=== PATIENT | male | born 1960 | race Caucasian/White ===

== ENCOUNTER 2018-01-13 13:48 | Emergency (ER) | payer OTHER, MEDICAID ==
[2018-01-13] MEDS ORDERED: Amoxicillin/Clavulanate K 875-125 MG Tab PO ONE (14:45)
[2018-01-13] MEDS ORDERED: Bacitracin Oint 1 GM U/D Packet TOP ONE (14:46)
[2018-01-13] MEDS ORDERED: Diphtheria,Pertussis(Acell),Tetanus Vaccine 0.5 ML SDV IM ONE (14:47)
--- NOTE | 2018-01-13 14:52 | EDM.PDOC ---
ED HPI GENERAL MEDICAL PROBLEM - General Chief Complaint: Bite:Animal, Insect Stated Complaint: BIT BY DOG- [facility] Time Seen by Provider: 01/13/18 14:35 Source of Information: Reports: Patient, RN History Limitations: Reports: No Limitations - History of Present Illness INITIAL COMMENTS - FREE TEXT/NARRATIVE: 57 yo male here after being bitten by a dog today. Poured peroxide on wound right afterwards. He thinks he is UTD on tetanus, but cannot recall the date. The dog is vaccinated. L hand injury resulted. No pain with moving any of his fingers, no numbness in fingers. 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: Other (see below) (wound care) Left Hand Pain Score (Numeric/FACES): 3 - Related Data Allergies Allergy/AdvReac Type Severity Reaction Status Date / Time naproxen Allergy Stomach Verified 01/13/18 14:11 Upset Home Meds: Home Meds Amoxicillin/Potassium Clav [Augmentin 875-125 Tablet] 1 each PO BID #5 tablet [Rx] Ibuprofen 400 mg PO BID PRN 01/13/18 [History] Lisinopril 1 tab PO DAILY 01/13/18 [History] Past Medical History HEENT History: Reports: Impaired Vision Cardiovascular History: Reports: Hypertension Musculoskeletal History: Reports: Fracture Other Musculoskeletal History: leg - Infectious Disease History Infectious Disease History: Reports: Chicken Pox, Measles - Past Surgical History GI Surgical History: Reports: Appendectomy Musculoskeletal Surgical History: Reports: Other (See Below) Other Musculoskeletal Surgeries/Procedures:: tendon repair l elbow upper bicep tendon repair Social & Family History - Tobacco Use Smoking Status *Q: Never Smoker Second Hand Smoke Exposure: No - Caffeine Use Caffeine Use: Reports: Coffee, Tea - Alcohol Use Days Per Week of Alcohol Use: 0 - Recreational Drug Use Recreational Drug Use: No ED ROS GENERAL - Review of Systems Review Of Systems: See Below Constitutional: Reports: No Symptoms HEENT: Reports: No Symptoms Respiratory: Reports: No Symptoms Cardiovascular: Reports: No Symptoms Musculoskeletal: Reports: Hand Pain (left) Skin: Reports: Wound (L hand) Neurological: Reports: No Symptoms ED EXAM, ANIMAL BITE - Physical Exam Exam: See Below Exam Limited By: No Limitations General Appearance: Alert, WD/WN, No Apparent Distress Ears: Hearing Grossly Normal Nose: Normal Inspection Throat/Mouth: Normal Voice, No Airway Compromise Head: Atraumatic, Normocephalic Neck: Normal Inspection, Supple Respiratory/Chest: No Respiratory Distress Extremities: Other (bite wounds L hand) Neurological: Alert, Oriented, CN II-XII Intact, Normal Cognition, No Motor/ Sensory Deficits Psychiatric: Normal Affect, Normal Mood Skin Exam: Normal Color, Other (bite wounds left hand) Lymphadenopathy: Bilateral: No Adenopathy Lymphatic: No Adenopathy Course - Vital Signs Last Recorded V/S: Last Vital Signs Temp 36.3 C 01/13/18 14:23 Pulse 86 01/13/18 14:23 Resp 16 01/13/18 14:23 BP 135/96 H 01/13/18 14:23 Pulse Ox 97 01/13/18 14:23 - Orders/Labs/Meds Orders: Active Orders 24 hr Category Date Time Status Vaccines to be Administered [RC] PER UNIT ROUTINE Care 01/13/18 14:47 Active Meds: Medications Discontinued Medications Generic Name Dose Route Start Last Admin Trade Name Freq PRN Reason Stop Dose Admin Amoxicillin/Clavulanate Potassium 1 tab 01/13/18 14:45 01/13/18 14:52 Augmentin 875 Mg/125 Mg PO 01/13/18 14:46 1 tab ONETIME ONE Administration Bacitracin 1 dose 01/13/18 14:46 01/13/18 14:53 Bacitracin Oint 1 Gm TOP 01/13/18 14:47 1 dose ONETIME ONE Administration Diphtheria/Tetanus/Acell Pertussis 0.5 ml 01/13/18 14:47 01/13/18 14:54 Adacel IM 01/13/18 14:48 0.5 ml .ONCE ONE Administration Departure - Departure Time of Disposition: 15:14 Disposition: Home, Self-Care 01 Condition: Good Clinical Impression: Dog bite of left hand Qualifiers: Encounter type: initial encounter Qualified Code(s): S61.452A - Open bite of left hand, initial encounter; W54.0XXA - Bitten by dog, initial encounter - Discharge Information Prescriptions: Amoxicillin/Potassium Clav [Augmentin 875-125 Tablet] 1 each PO BID #5 tablet Referrals: PCP,None [Primary Care Provider] - Forms: ED Department Discharge Additional Instructions: Clean wound with soap and water twice daily. Dry. Apply antibiotic ointment and a new dressing. Recheck in the clinic Thursday afternoon or Thursday morning. Return here as needed. Acetaminophen as needed for pain relief. - My Orders Last 24 Hours: My Active Orders 01/13/18 14:47 Vaccines to be Administered [RC] PER UNIT ROUTINE - Assessment/Plan Last 24 Hours: My Active Orders 01/13/18 14:47 Vaccines to be Administered [RC] PER UNIT ROUTINE
== END 2018-01-13 15:28 | disposition home or self-care (01) ==
LOC: JP.ED 13:48
DX: S61.452A Open bite of left hand, initial encounter (principal); I10 Essential (primary) hypertension; Z88.6 Allergy status to analgesic agent; Z23 Encounter for immunization; W54.0XXA Bitten by dog, initial encounter
CPT/HCPCS: 90471; 90715; 99283; A9270

== ENCOUNTER 2025-03-26 17:26 | Emergency (ER) | payer MEDICARE ==
[2025-03-26] MEDS: Diphtheria,Pertussis(Acell),Tetanus Vaccine 0.5 ML Syringe IM ONE (19:17)
[2025-03-26] MEDS: Bacitracin Oint 1 GM U/D Packet TOP ONE (19:19)
[2025-03-26] MEDS: Amoxicillin/Clavulanate K 875-125 MG Tab PO ONE (20:11)
== END 2025-03-26 20:15 | disposition home or self-care (01) ==
LOC: JP.ED 17:26
DX: S61.215A Laceration without foreign body of left ring finger without damage to nail, initial encounter (principal); I10 Essential (primary) hypertension; Z88.8 Allergy status to other drugs, medicaments and biological substances; Z90.49 Acquired absence of other specified parts of digestive tract; Z23 Encounter for immunization; W26.8XXA Contact with other sharp object(s), not elsewhere classified, initial encounter
CPT/HCPCS: 12001; 73140; 90471; 90715; 99283; A9270; J2003